=== PATIENT | male | born 1965 | race African-American/Black ===

== ENCOUNTER → 2017-08-21 08:02 | Outpatient (CLI) | payer OTHER ==
[2015-11-20 08:40] VITALS: BMI 28.0
== END | disposition home or self-care (01) ==
LOC: D.MRI 08:00
DX: M25.512 Pain in left shoulder (principal)

== ENCOUNTER 2017-09-14 05:18 | Day surgery (SDC) | payer OTHER ==
--- NOTE | ~2017-09-14 | OP ---
PATIENT NAME: SAVITA SORIANO MEDICAL RECORD: [id number] :61 LOCATION:D.OPS ADMISSION DATE: SURGEON: AL VALLE MD DATE OF OPERATION: 09/14/2017 PREOPERATIVE DIAGNOSIS: Rotator cuff tear of the left shoulder with impingement syndrome. POSTOPERATIVE DIAGNOSIS: Rotator cuff tear of the left shoulder with impingement syndrome. PROCEDURE: 1. Arthroscopic rotator cuff repair of the left shoulder. 2. Arthroscopic distal clavicle excision, left shoulder. 3. Arthroscopic subacromial decompression with acromioplasty and bursectomy. SURGEON: Al Valle MD ANESTHESIA: General. INTRAOPERATIVE COMPLICATIONS: None. SUMMARY OF PATHOLOGIC FINDINGS: The patient had full thickness rotator cuff tear consistent with the preoperative diagnosis. OPERATIVE SUMMARY IN DETAIL: After obtaining the appropriate preoperative orthopedic surgery consent as well as anesthetic consultation, evaluation and clearance, the patient was brought to the operating room and placed on the operating table in supine position. After general laryngeal mask was administered, the patient was placed in the right lateral decubitus position. All pressure points were well padded to include down leg peroneal pad as well as axillary roll. The patient was held firmly to the operating table using the vacuum pack suction system. The patient's left upper extremity and shoulder were then prepped and draped in routine sterile fashion. The arm was held in the appropriate position at 30 degrees of forward flexion and 30 degrees of abduction with 10 pounds of traction laterally. Arthroscopy portal was established in the glenohumeral joint from a posterior portal. Anterior portal was established in the anterior safe interval. Diagnostic arthroscopy did show the patient had full thickness rotator cuff tear. Transrotator cuff tear portal was created for debridement on the articular aspect of the supraspinatus tendinous footprint. The supraspinatus tendon itself was debrided. Attention was then turned to the subacromial space. While on subacromial space, [place] tissue ablation system was utilized to denude the undersurface of the acromion of all soft tissue elements and released the coracoacromial ligament. A 5-0 barrel bur was used to perform acromioplasty at the level of acromioclavicular joint. Through a separate anterior arthroscopic portal, 1 cm of the distal clavicle was excised under direct arthroscopic visualization. Attention was then returned to the rotator cuff. Further decortication was carried out over the greater tuberosity. Two #2 FiberTape were then utilized to anchor the rotator cuff laterally with excellent coverage over the supraspinatus tendinous footprint. Having completed this, arthroscopy portals were closed in routine interrupted fashion using 4-0 Prolene. Sterile dressings were applied. The patient was awakened and taken to the recovery room in stable condition. All final needle and sponge counts were correct. OPERATIVE REPORT [id number] CHRISTIEDEANNSAVITA EARL TRANSINT:[id number] Voice Confirmation ID: [id number] DOCUMENT ID: [id number] TORI HARDY, AL NUNEZ at 0827 CC: [id number] DICTATION DATE: 09/16/17 1627 [employer]PECTOR [employer]IRE ROPE: 09/16/17 1704 [facility] 09/14/17 [id number] [place] [address]
[~2017-09-14 05:18] MED LIST: CLARITIN 10 MG10 MG PO
[2017-09-14 05:29] VITALS: BP 123/84; BMI 28.3
[2017-09-14] MEDS ORDERED: HYDROCODONE-APA1 TAB PO (08:28)
== END 2017-09-14 10:30 | disposition home or self-care (01) ==
LOC: D.OPS 05:18 → D.PAN 10:00 → D.OPS 10:30
DX: M75.122 Complete rotator cuff tear or rupture of left shoulder, not specified as traumatic (principal); M75.42 Impingement syndrome of left shoulder; Z01.812 Encounter for preprocedural laboratory examination